=== PATIENT | male | born 1940 | race Caucasian/White ===

== ENCOUNTER 2017-05-14 16:05 | Emergency (ER) | payer MEDICARE, OTHER ==
[~2017-05-14] VITALS: Ht 182.9 cm; Wt 86.0 kg
[~2017-05-14 16:05] MED LIST: AMLODIPINE10 MG PO; AMLODIPINE2.5 MG PO; AUGMENTIN875TAB PO; CALTRATE 602 PO; CLONIDINE HCL0.2 MG PO; CLONIDINE0.1 MG PO; COUMADIN3 MG PO; DIGOXIN0.25 MG PO; FUROSEMIDE40 MG PO; LANOXIN250 MCG PO; LIPITOR40 M1 PO; LIPITOR40 MG PO; LISINOPRIL20 M1 PO; LORTAB 7.5-3251 TAB PO; METFORMIN HCL1000 MG PO; MULTI VIT PO; MULTI VITAMIN MENS PO; VITAMIN B-121000 MC1 SL; VITAMIN C1000 MG PO; VITAMIN D400 UNI1 PO; WARFARIN6 MG PO; WARFARIN7.5 MG PO; [UNRECOGNIZED DRUG - OTHER] PO
[2017-05-14] MEDS ORDERED: TEMAZEPAM30 MG PO (16:45)
[2017-05-14] MEDS ORDERED: AMLODIPINE BESYL5 MG PO (16:46)
[2017-05-14] MEDS ORDERED: CLONIDINE HCL0.1 MG PO (16:46)
[2017-05-14] MEDS ORDERED: ATORVASTATIN CA40 MG PO (16:47)
[2017-05-14] MEDS ORDERED: KLOR-CON M2020 MEQ PO (16:48)
[2017-05-14] MEDS ORDERED: LASIX 40 MG TAB40 MG PO (16:48)
[2017-05-14] MEDS ORDERED: WARFARIN3 MG PO ×2 (16:50)
[2017-05-14] MEDS ORDERED: EC-NAPROSYN500 MG PO (17:29)
[2017-05-14] MEDS ORDERED: TRAMADOL HYDROC50 MG PO (17:29)
[2017-05-14 17:40] VITALS: BP 141/66
== END 2017-05-14 17:40 | disposition home or self-care (01) ==
LOC: ED 16:05
DX: S22.42XA Multiple fractures of ribs, left side, initial encounter for closed fracture (principal); I11.0 Hypertensive heart disease with heart failure; I50.9 Heart failure, unspecified; I48.91 Unspecified atrial fibrillation; F17.210 Nicotine dependence, cigarettes, uncomplicated; W17.89XA Other fall from one level to another, initial encounter; Z86.73 Personal history of transient ischemic attack (TIA), and cerebral infarction without residual deficits

== ENCOUNTER 2017-05-30 16:53 | Emergency (ER) | payer MEDICARE, OTHER ==
[~2017-05-30] VITALS: Ht 182.9 cm; Wt 87.2 kg
[~2017-05-30 16:53] MED LIST changes: +AMLODIPINE BESYL5 MG PO; +ATORVASTATIN CA40 MG PO; +CLONIDINE HCL0.1 MG PO; +EC-NAPROSYN500 MG PO; +KLOR-CON M2020 MEQ PO; +LASIX 40 MG TAB40 MG PO; +TEMAZEPAM30 MG PO; +TRAMADOL HYDROC50 MG PO; +WARFARIN3 MG PO
[2017-05-30 18:11] LABS: IMMATURE GRANULOCYTES 1.6 % (0.0-1.0); MEAN CELL VOLUME 101.2 fL CALC (80.0-100.0); MEAN CORPUSCULAR HGB 33.7 pG CALC (26.0-32.0); MEAN CORPUSCULAR HGB CONC 33.3 g/L CALC (32.0-36.0); NEUT# 10.18 thou/uL (1.82-7.42); RED BLOOD COUNT 1.69 mill/uL (4.70-6.10); RED CELL DISTRI WIDTH 13.6 % (11.5-15.5)
[2017-05-30 18:14] LABS: HEMOGLOBIN 5.7 g/dl (14.0-18.0)
[2017-05-30 18:15] LABS: HEMATOCRIT 17.1 % (39.0-50.0)
[2017-05-30 18:30] LABS: BILIRUBIN, TOTAL 0.2 mg/dL (0.0-1.4); CALCIUM 8.7 mg/dL (8.4-10.2); CREATININE 2.7 mg/dL (0.7-1.3); TOTAL PROTEIN 5.5 g/dL (6.3-8.2)
[2017-05-30 18:37] LABS: POTASSIUM 5.4 mmol/l (3.5-5.1)
[2017-05-30 18:39] LABS: MYOGLOBIN 120 ng/mL (0 - 121)
[2017-05-30 18:55] LABS: PROTHROMBIN TIME 34.1 SECONDS (9.0-12.5)
[2017-05-30 19:40] VITALS: BP 127/61
== END 2017-05-30 19:41 | disposition short-term general hospital (02) ==
LOC: ED 16:53
PROVIDERS: Emergency Medicine
DX: D50.0 Iron deficiency anemia secondary to blood loss (chronic) (principal); R63.1 Polydipsia; I10 Essential (primary) hypertension; E78.4 Other hyperlipidemia; E03.9 Hypothyroidism, unspecified; E11.65 Type 2 diabetes mellitus with hyperglycemia; I48.2 Chronic atrial fibrillation; I20.8 Other forms of angina pectoris; S81.801A Unspecified open wound, right lower leg, initial encounter; F17.200 Nicotine dependence, unspecified, uncomplicated

== ENCOUNTER 2017-07-18 17:18 | Emergency (ER) | payer MEDICARE, OTHER ==
[~2017-07-18] VITALS: Ht 182.9 cm; Wt 84.0 kg
[2017-07-18] MEDS ORDERED: BELSOMRA10 MG PO (19:30)
[2017-07-18] MEDS ORDERED: TRAMADOL HCL50 MG PO (19:31)
[2017-07-18] MEDS ORDERED: CARAFATE1 GM PO (19:32)
[2017-07-18] MEDS ORDERED: PANTOPRAZOLE SO40 MG PO (19:32)
[2017-07-18 20:46] LABS: HEMATOCRIT 28.4 % (39.0-50.0); HEMOGLOBIN 9.4 g/dl (14.0-18.0); IMMATURE GRANULOCYTES 0.2 % (0.0-1.0); MEAN CELL VOLUME 89.6 fL CALC (80.0-100.0); MEAN CORPUSCULAR HGB 29.7 pG CALC (26.0-32.0); MEAN CORPUSCULAR HGB CONC 33.1 g/L CALC (32.0-36.0); NEUT# 4.08 thou/uL (1.82-7.42); RED BLOOD COUNT 3.17 mill/uL (4.70-6.10); RED CELL DISTRI WIDTH 17.2 % (11.5-15.5)
[2017-07-18 21:06] LABS: CALCIUM 9.7 mg/dL (8.4-10.2); CREATININE 2.3 mg/dL (0.7-1.3); POTASSIUM 3.8 mmol/l (3.5-5.1)
[2017-07-18 21:12] LABS: INTERNATIONAL NORMALIZED RATIO 8.7 RATIO (0.7-1.3); PROTHROMBIN TIME 102.3 SECONDS (9.0-12.5)
[2017-07-18] MEDS ORDERED: AUGMENTIN875TAB PO (21:19)
[2017-07-18 21:30] VITALS: BP 139/74
== END 2017-07-18 21:30 | disposition home or self-care (01) ==
LOC: ED 17:18
PROVIDERS: Family Medicine
DX: R79.1 Abnormal coagulation profile (principal); S51.032A Puncture wound without foreign body of left elbow, initial encounter; S51.832A Puncture wound without foreign body of left forearm, initial encounter; S61.532A Puncture wound without foreign body of left wrist, initial encounter; X58.XXXA Exposure to other specified factors, initial encounter; Y92.009 Unspecified place in unspecified non-institutional (private) residence as the place of occurrence of the external cause; I48.91 Unspecified atrial fibrillation; Z79.01 Long term (current) use of anticoagulants

== ENCOUNTER 2017-07-19 13:55 | Emergency (ER) | payer MEDICARE, OTHER ==
[~2017-07-19] VITALS: Ht 182.9 cm; Wt 84.0 kg
[~2017-07-19 13:55] MED LIST changes: +BELSOMRA10 MG PO; +CARAFATE1 GM PO; +PANTOPRAZOLE SO40 MG PO; +TRAMADOL HCL50 MG PO
[2017-07-19 15:26] LABS: HEMOGLOBIN 9.2 g/dl (14.0-18.0); IMMATURE GRANULOCYTES 0.1 % (0.0-1.0); MEAN CELL VOLUME 90.3 fL CALC (80.0-100.0); MEAN CORPUSCULAR HGB 29.7 pG CALC (26.0-32.0); MEAN CORPUSCULAR HGB CONC 32.9 g/L CALC (32.0-36.0); NEUT# 4.66 thou/uL (1.82-7.42); RED BLOOD COUNT 3.1 mill/uL (4.70-6.10); RED CELL DISTRI WIDTH 17.2 % (11.5-15.5)
[2017-07-19 15:40] LABS: ALBUMIN 4.3 g/dL (3.2-5.0); BILIRUBIN, TOTAL 0.7 mg/dL (0.0-1.4); CALCIUM 9.8 mg/dL (8.4-10.2); CREATININE 2.4 mg/dL (0.7-1.3); POTASSIUM 3.7 mmol/l (3.5-5.1); TOTAL PROTEIN 7.4 g/dL (6.3-8.2)
[2017-07-19 15:45] LABS: PROTHROMBIN TIME 46.6 SECONDS (9.0-12.5)
[2017-07-19 16:38] VITALS: BP 150/73
== END 2017-07-19 17:04 | disposition home or self-care (01) ==
LOC: ED 13:55
PROVIDERS: Emergency Medicine
PROC: 0HQEXZZ Repair Left Lower Arm Skin, External Approach (ICD-10-PCS; principal; 2017-07-19)
PROC: 0HQEXZZ Repair Left Lower Arm Skin, External Approach (ICD-10-PCS; 2017-07-19)
DX: T45.515A Adverse effect of anticoagulants, initial encounter (principal); S51.012A Laceration without foreign body of left elbow, initial encounter; S61.412A Laceration without foreign body of left hand, initial encounter; S51.812A Laceration without foreign body of left forearm, initial encounter; X58.XXXD Exposure to other specified factors, subsequent encounter; Y92.009 Unspecified place in unspecified non-institutional (private) residence as the place of occurrence of the external cause; I48.91 Unspecified atrial fibrillation; Z79.01 Long term (current) use of anticoagulants; F17.210 Nicotine dependence, cigarettes, uncomplicated